=== PATIENT | female | born 1965 | race Caucasian/White ===

== ENCOUNTER 2018-04-26 07:26 | Emergency (ER) | payer OTHER ==
[~2018-04-26] VITALS: Ht 160 cm; Wt 75.8 kg
[~2018-04-26 07:26] MED LIST: HYDACE5 PO; LOPE2C PO; PROM25 PO; SPIR25
[2018-04-26] MEDS ORDERED: Zestril40 MG PO (07:49)
[2018-04-26] MEDS ORDERED: TOPI25 PO (07:49)
[2018-04-26] MEDS ORDERED: FURO40 PO (07:49)
[2018-04-26] MEDS ORDERED: CARV25 PO (07:49)
[2018-04-26] MEDS ORDERED: NAPR500 PO (07:50)
[2018-04-26] MEDS ORDERED: Adipex-P37.5 MG PO (07:50)
[2018-04-26] MEDS ORDERED: Robaxin500 MG PO (08:58)
[2018-04-26] MEDS ORDERED: Percocet 5-3251 EACH PO (08:58)
[2018-04-26] MEDS ORDERED: METPRE4DP PO (08:58)
== END 2018-04-26 09:18 | disposition home or self-care (01) ==
LOC: ER 07:26
DX: M54.16 Radiculopathy, lumbar region (principal); I50.9 Heart failure, unspecified; Z79.899 Other long term (current) drug therapy
CPT/HCPCS: 96374; 96375; 99283-25; J1100; J1170; J1885; J2405; J3360

== ENCOUNTER → 2021-08-05 | Outpatient (CLI) | payer OTHER ==
[~2021-08-05] MED LIST changes: +Adipex-P37.5 MG PO; +CARV25 PO; +FURO40 PO; +METPRE4DP PO; +NAPR500 PO; +Percocet 5-3251 EACH PO; +Robaxin500 MG PO; +TOPI25 PO; +Zestril40 MG PO
[2021-08-05 13:38] LABS: BASOPHILS ABSOLUTE AUTO 0.04 K/mm3 (0.00-0.23); BASOPHILS PERCENT AUTO 1 % (0-2); EOSINOPHILS ABSOLUTE AUTO 0.19 K/mm3 (0.00-0.68); EOSINOPHILS PERCENT AUTO 2 % (0-6); Hematocrit 40.1 % (33.0-51.0); Hemoglobin 13.4 g/dL (11.5-16.0); IMMATURE GRAN ABSOLUTE AUTO 0.03 K/mm3 (0.00-0.10); IMMATURE GRAN PERCENT AUTO 0 % (0-1); LYMPHOCYTES ABSOLUTE AUTO 2.44 K/mm3 (0.84-5.20); LYMPHOCYTES PERCENT AUTO 29 % (21-46); MONOCYTES ABSOLUTE AUTO 0.58 K/mm3 (0.16-1.47); MONOCYTES PERCENT AUTO 7 % (4-13); Mean Corpuscular HGB 29.8 pg (26.0-34.0); Mean Corpuscular HGB Conc 33.4 g/dL (31.5-36.5); Mean Corpuscular Volume 89 fL (80-100); Mean Platelet Volume 9.8 fL (9.1-12.4); NEUTROPHILS ABSOLUTE AUTO 5.28 K/mm3 (1.96-9.15); NEUTROPHILS PERCENT AUTO 62 % (41-73); Platelet Count 224 K/mm3 (150-400); RDW Coefficient Variation 13.1 % (11.7-14.2); RDW Standard Deviation 42.6 fL (35.1-46.3); White Blood Cell Count 8.56 K/mm3 (4.00-11.30)
[2021-08-05 13:48] LABS: Anion Gap 9 mmol/L (6-16); Blood Urea Nitrogen 19 mg/dL (8-24); Bun/Creatinine Ratio 26.4 (12.0-20.0); CO2, Blood 28 mmol/L (21-32); Calcium, Blood 9.6 mg/dL (8.5-10.1); Chloride, Blood 102 mmol/L (98-108); Creatinine, Blood 0.72 mg/dL (0.40-1.00); Glomerular Filtration Rate >60 (60-); Glucose, Blood 98 mg/dL (70-99); Potassium, Blood 3.9 mmol/L (3.5-5.5); Sodium, Blood 139 mmol/L (136-145); Uric Acid, Blood 7.5 mg/dL (2.6-6.0)
== END ==
LOC: LAB SHORT 13:34 → LAB 13:34
PROVIDERS: Physician Assistant Medical
DX: M25.561 Pain in right knee (principal)
CPT/HCPCS: 80048; 84550; 85025

== ENCOUNTER 2023-03-26 11:36 | Day surgery (SDC) | payer OTHER ==
[~2023-03-26] VITALS: Ht 160 cm; Wt 76.9 kg
[~2023-03-26 11:36] MED LIST changes: +ALLO100; +IBUP400; +LOSA25
[2023-03-26] MEDS ORDERED: Adipex-P37.5 M1 PO (11:59)
[2023-03-26] MEDS ORDERED: DOTTI1 EA18 (11:59)
[2023-03-26] MEDS ORDERED: TOPI100 (11:59)
[2023-03-26] MEDS ORDERED: PROG100 (11:59)
--- NOTE | 2023-03-26 12:05 | NUR ---
03/26/23 1205 Otilia Sorto TETRACAINE ADMINISTERED TO THE R EYE AT 1154, PLEDGET PLACED IN R EYE AT 1204
[2023-03-26 13:36] VITALS: BP 120/73
--- NOTE | 2023-03-26 13:58 | NUR ---
03/26/23 1358 Magdi Zaman IV REMOVED INTACT. SITE WNL.
== END 2023-03-26 13:56 | disposition home or self-care (01) ==
LOC: ORSCSDS 11:36
PROVIDERS: Ophthalmology
PROC: 08DJ3ZZ Extraction of Right Lens, Percutaneous Approach (ICD-10-PCS; principal; 2023-03-26 13:00)
DX: H25.13 Age-related nuclear cataract, bilateral (principal); I10 Essential (primary) hypertension; G47.33 Obstructive sleep apnea (adult) (pediatric); M10.9 Gout, unspecified; Z79.899 Other long term (current) drug therapy
CPT/HCPCS: J2001; J2250; J3010; J3301; J7040; V2632

== ENCOUNTER 2023-04-02 12:43 | Day surgery (SDC) | payer OTHER ==
[~2023-04-02] VITALS: Ht 160 cm; Wt 77.2 kg
[~2023-04-02 12:43] MED LIST changes: +Adipex-P37.5 M1 PO; +DOTTI1 EA18; +PROG100; +TOPI100
[2023-04-02 14:19] VITALS: BP 107/71
--- NOTE | 2023-04-02 14:37 | NUR ---
04/02/23 1437 Magdi Zaman IV REMOVED INTACT. SITE WNL.
== END 2023-04-02 14:32 | disposition home or self-care (01) ==
LOC: ORSCSDS 12:43
PROVIDERS: Ophthalmology
PROC: 08RK3JZ Replacement of Left Lens with Synthetic Substitute, Percutaneous Approach (ICD-10-PCS; principal; 2023-04-02 14:00)
DX: H25.12 Age-related nuclear cataract, left eye (principal); H52.202 Unspecified astigmatism, left eye; Z96.1 Presence of intraocular lens; I10 Essential (primary) hypertension; G47.33 Obstructive sleep apnea (adult) (pediatric); I50.9 Heart failure, unspecified; Z79.899 Other long term (current) drug therapy
CPT/HCPCS: J2250; J3010; J3301; J7040; V2632

== ENCOUNTER 2023-04-23 05:51 | Inpatient (IN) | payer OTHER ==
[2023-04-23] VITALS (11 sets, daily range): BP systolic 100–119; BP diastolic 56–74
[~2023-04-23] VITALS: Ht 160 cm; Wt 78.1 kg
[~2023-04-23 05:51] MED LIST changes: -ALLO100; +ALLO100 PO; +COLCHICINE0.6 MG PO; +DICLOFENAC SOD100 GM TOP; -DOTTI1 EA18; +DOTTI1 EA18 PO; +Furosemide20 MG PO; -IBUP400; +IBUP400 PO; +LISI20 PO; -LOSA25; +LOSA25 PO; -PROG100; +PROG100 PO; -TOPI100; +TOPI100 PO
--- NOTE | 2023-04-23 06:42 | NUR ---
Ambulatory in Day Surgery History, Chart, Medications and Allergies reviewed before start of procedure. Pre-Op teaching done. Pt verbalizes understanding.
--- NOTE | 2023-04-23 10:11 | NUR ---
DISCHARGE SUMMARY PT A&OX4, VSS/RA, PAOLA PO, PAIN TREATED WITH NORCO 5MG, AMB IND/DRESSED SELF, ABDOMINAL BINDER ON, IV DC'D. DC INS PROVIDED, PT REP UNDERSTANDING THOSE INSTRUCTIONS INCLUDING SHOWER TOMORROW, LEAVE STERIS IN PLACE, NO LIFTING >10LBS, PAIN MGMT, FU APPT WITH SURGEON 2 WKS, WHEN TO CALL THE DRSrikanth LEFT VIA WC WITH DC VOL TO GO HOME WITH HILDA/INTEGRATION DIRECTOR.
== END 2023-04-23 18:15 | disposition home or self-care (01) | DRG 330 ==
LOC: SURS 05:51 → PRE IP 07:30 → SURS 18:15
PROVIDERS: ADMIT Surgery
PROC: 0DBH4ZZ Excision of Cecum, Percutaneous Endoscopic Approach (ICD-10-PCS; principal; 2023-04-23 07:30)
DX: K63.5 Polyp of colon (principal); I50.30 Unspecified diastolic (congestive) heart failure; I11.0 Hypertensive heart disease with heart failure; E78.5 Hyperlipidemia, unspecified; F32.A Depression, unspecified; F41.1 Generalized anxiety disorder; M10.9 Gout, unspecified; E11.9 Type 2 diabetes mellitus without complications; H26.9 Unspecified cataract; M54.50 Low back pain, unspecified; E66.9 Obesity, unspecified; G47.33 Obstructive sleep apnea (adult) (pediatric); F10.10 Alcohol abuse, uncomplicated; Z98.890 Other specified postprocedural states; Z68.31 Body mass index [BMI] 31.0-31.9, adult; Z88.8 Allergy status to other drugs, medicaments and biological substances; Z88.1 Allergy status to other antibiotic agents
CPT/HCPCS: 88307; A9270; J0690; J1100; J2250; J2371; J2405; J2704; J3010; J7120

== ENCOUNTER → 2024-08-05 | Outpatient (CLI) | payer BC ==
[2024-08-17 18:38] LABS: HPV HIGH RISK BY TMA Not Detected; HPV SOURCE Cervical
== END ==
LOC: LAB 15:02 → LAB SHORT 15:02
PROVIDERS: Obstetrics & Gynecology
DX: Z01.419 Encounter for gynecological examination (general) (routine) without abnormal findings (principal)
CPT/HCPCS: 87624; G0123

== ENCOUNTER 2025-04-21 13:42 | Emergency (ER) | payer OTHER ==
[~2025-04-21] VITALS: Ht 160 cm; Wt 77.1 kg
[2025-04-21] MEDS ORDERED: Ketorolac Tromethamine 30mg Vial IV ONE (13:55)
[2025-04-21] MEDS ORDERED: IBUP600 PO (13:56)
[2025-04-21 14:01] VITALS: BP 149/74
== END 2025-04-21 14:09 | disposition home or self-care (01) ==
LOC: ER 13:42
DX: S16.1XXA Strain of muscle, fascia and tendon at neck level, initial encounter (principal); S39.012A Strain of muscle, fascia and tendon of lower back, initial encounter; I50.9 Heart failure, unspecified; Z88.1 Allergy status to other antibiotic agents; Z88.8 Allergy status to other drugs, medicaments and biological substances; Z79.899 Other long term (current) drug therapy; V43.52XA Car driver injured in collision with other type car in traffic accident, initial encounter
CPT/HCPCS: 96374; 99284-25; J1885